=== PATIENT | male | born 1945 | race Caucasian/White ===

== ENCOUNTER → 2022-08-21 | Outpatient (CLI) | payer OTHER ==
[~2022-08-21] MED LIST: AMLO10 PO; ASPI81EC PO; ATEN50; ATENOLOL; CALMAGZIN PO; Desyrel50 MG; FELO5CR; FELODIPINE; LISI20; LISINOPRIL; MULVITMINF PO; NIAC250ER PO; PROSTATE HEALTH PO; SPIR25 PO; TERA5; TERAZOSIN; TRIHYD253B; ZESTRIL40 MG PO; [UNRECOGNIZED DRUG - OTHER]
[2022-08-22 11:16] LABS: Stool Occult Bld Immuno 1 Negative (NEGATIVE)
== END | disposition home or self-care (01) ==
LOC: LAB 15:35 → LAB SHORT 15:35
PROVIDERS: Internal Medicine Gastroenterology
DX: Z09 Encounter for follow-up examination after completed treatment for conditions other than malignant neoplasm (principal); Z86.010 Personal history of colon polyps
CPT/HCPCS: 82274

== ENCOUNTER → 2022-09-05 | Outpatient (CLI) | payer OTHER ==
[2022-09-07 13:31] LABS: Stool Occult Bld Immuno 1 Negative (NEGATIVE)
== END | disposition home or self-care (01) ==
LOC: LAB 10:00 → LAB SHORT 10:00
PROVIDERS: Internal Medicine Gastroenterology
DX: Z09 Encounter for follow-up examination after completed treatment for conditions other than malignant neoplasm (principal); Z86.010 Personal history of colon polyps
CPT/HCPCS: 82274